=== PATIENT | male | born 1960 | race Caucasian/White ===

== ENCOUNTER → 2017-05-07 | Outpatient (CLI) | payer OTHER ==
--- NOTE | 2017-05-08 23:49 | MR ---
MRI CERVICAL SPINE: CLINICAL HISTORY: Cervical disc disorder C5-C6 level with radiculopathy per order. Neck and shoulder pain for 2 months causing pain or weakness into left arm per patient. TECHNIQUE: Multiplanar, multisequence imaging of the cervical spine is performed without IV contrast. COMPARISON: None. FINDINGS: Coronal images show slight levoconvex scoliotic curvature centered at the cervicothoracic j unction. Sagittal images of the cervical spine show the craniocervical junction to appear within norm al limits. The cervical and upper thoracic spinal cord is normal in course, caliber, and signal. Ve rtebral alignment is straightened. The vertebral body height are normal. There is mild disc space n arrowing C5-C6 level with small posterior disc herniation seen at this level on sagittal images. Ther e is hemangioma involving C5 vertebra. No significant spurring is seen. Axial images show the C2-C3 level to appear within normal limits. Axial images at C3-C4 level show focal central disc protrusion effacing anterior thecal sac on axial image 41, there is asymmetric mild left-sided neural foraminal narrowing presumed due to marginal spu rring. Right-sided neural foramen is patent. Axial images at C4-C5 level shows central disc protrusion mildly facing anterior thecal sac on axial image 32, bilateral neuroforamina are patent. Axial images at C5-C6 level shows broad-based posterior disc protrusion effacing anterior thecal sac and causing mild to moderate right and mild left-sided neural foraminal narrowing. Axial images at C6-C7 level show left paracentral disc protrusion effacing anterolateral thecal sac o n axial image 14, bilateral neuroforamina are patent. Axial images at C7-T1 level are felt within normal limits. IMPRESSION: Loss of normal curvature with multilevel degenerative changes seen most prominent at C5-C 6 level as detailed above.
== END | disposition home or self-care (01) ==
LOC: RADMRIMAIN 15:00
PROVIDERS: ATTEND Family Medicine
DX: M47.22 Other spondylosis with radiculopathy, cervical region (principal); M40.202 Unspecified kyphosis, cervical region
CPT/HCPCS: 72141

== ENCOUNTER 2019-06-22 09:57 | Day surgery (SDC) | payer OTHER ==
[2019-06-20 16:10] VITALS: BMI 29.0
[~2019-06-22 09:57] MED LIST: DEXAMETHASONE SOD PHOSPHATE 10 MG/ML 1 ML VIAL IV ONE; DEXAMETHASONE SOD PHOSPHATE 4 MG/ML 1 ML VIAL IV ONE; FAMOTIDINE 20 MG/2 ML VIAL IV ONE; HYDROmorphone 0.5 MG/0.5 ML SYRINGE IVP PRN; LACTATED RINGERS 1,000 ML IV SCH; LIDOCAINE 1% (10MG/ML) FOR IV START INTRADERMA PRN; ONDANSETRON 4 MG/2 ML VIAL IVP ONE; OXYMETAZOLINE 0.05% NASL SPRAY 1 SPRAY BOTTLE NASAL ONE
[2019-06-22 10:50] LABS: Glucose,Whole Blood 90 mg/dL (75-99)
[2019-06-22] MEDS ORDERED: PHENYLEPHRINE-0.9% NACL SYG 1 MG/10 ML SYRINGE ONE (11:30)
[2019-06-22] MEDS ORDERED: MIDAZOLAM 2 MG/2 ML VIAL ONE (11:30)
[2019-06-22] MEDS ORDERED: LIDOCAINE 1% INJ 10MG/ML (20 ML MDV) ONE (11:30)
[2019-06-22] MEDS ORDERED: PROPOFOL 10 MG/ML 20 ML VIAL IV ONE (11:30)
[2019-06-22] MEDS ORDERED: DEXAMETHASONE SOD PHOS (MDV) 100 MG/10 ML VIAL ONE (11:30)
[2019-06-22] MEDS ORDERED: GLYCOPYRROLATE 0.2 MG/ML 2 ML VIAL ONE (11:30)
[2019-06-22] MEDS ORDERED: NEOSTIGMINE 1 MG/ML 10 ML VIAL ONE (11:30)
[2019-06-22] MEDS ORDERED: fentaNYL (PF) 50 MCG/ML 2 ML AMP ONE (11:30)
[2019-06-22] MEDS ORDERED: ROCURONIUM BROMIDE 10 MG/ML 5 ML VIAL IV ONE (11:30)
[2019-06-22] MEDS ORDERED: LIDOCAINE 1%-EPI 1:100,000 20 ML VIAL SQ ONE (11:59)
[2019-06-22] MEDS ORDERED: FLUORESCEIN STRIPS 1 MG STRIP MISCELLANE ONE (12:00)
[2019-06-22] MEDS ORDERED: EPINEPHrine 1 MG/ML (MDV) 30 ML VIAL IRRIGATION ONE (12:00)
[2019-06-22 13:03] VITALS: TEMP 97.4
--- NOTE | 2019-06-22 13:19 | P.OP ---
Date of Procedure: 06/22/19 Preoperative Diagnosis: Chronic pansinusitis with polyposis Postoperative Diagnosis: same Procedure(s) Performed: Bilateral functional endoscopic sinus surgery with polypectomy Anesthesia: JUAN Surgeon: Leroy Ha Estimated Blood Loss (ml): 10 Pathology: other (Sinonasal) Condition: stable Disposition: PACU Indications for Procedure: This is a white male who presented to the office with chronic sinus symptoms including nasal obstruction, total anosmia, facial pain and pressure etc. He's been treated with maximal medical therapy including antibiotics, corticosteroid nasal sprays and steroids with no improvement. CAT scan shows chronic pansinusitis with sinonasal polyposis. Surgery was recommended and a consent was obtained. All risks, benefits, and alternative therapies were discussed. Consent was obtained and all questions were answered. Operative Findings: Patient had sinonasal polyposis intranasally and throughout all sinuses with a very thick viscous material present. Description of Procedure: This patient was taken to the operative room and placed in the supine position. A general inhalation anesthetic was administered to the patient by the department of anesthesia with a functioning IV line in place. The patient was monitored throughout the entire case by the department of anesthesia. The eyes were taped shut for protection. The patient was placed in a slight reverse Trendelenburg position. The patient had previously utilize Afrin nasal spray preoperatively. The nose was evaluated and the septum lateral nasal wall and inferior turbinates were injected with lidocaine 1% with epinephrine 1 100,000 bilaterally. Approximately 10 minutes were allowed wait for full vasoconstrictive effects to take place. We then entered the nose with a 0 and 30 Goff elmer endoscope. Previous to this we did inject the lateral nasal wall and middle turbinate and uncinate process with lidocaine 1% with epinephrine 1 100,000. Approximately 10 minutes were allowed wait for full vasoconstrictive effects to take place. Intranasal polyps were noted. They were noted bilaterally. The intranasal polyps were removed with use of a microdebrider. With use of a microdebrider and a pediatr ic backbiter, we took down the uncinate process bilaterally. We then opened the maxillary sinuses bilaterally. We utilized a microdebrider for this and entered the maxillary sinuses and removed diseased tissue and polypoid tissue. This was done bilaterally. After the maxillary sinuses were opened and the diseased tissue and polyps were removed we entered the ethmoid bulla and with use of a microdebrider and up-biting Perico, we remove the anterior septations and remove diseased tissue from the anterior ethmoids with direct visualization. We then followed the fovea frontalis through the basal lamella and into the posterior ethmoid air cells and did a total ethmoidectomy with removal of polypoid material. Once the ethmoids cells were all taken down we then entered the sphenoid sinus medially and inferiorly underneath the inferior attachment of the superior turbinate. The sphenoid sinus was opened entered and diseased tissue and polyps were removed bilaterally. This was done with a microdebrider and Emily. We then entered the frontal sinuses with a giraffe and up-biting Emily entered on the agar nasi cells. We open the frontal sinuses and removed sinus tissue and polypoid tissue that was diseased. We explored the frontal sinuses bilaterally. To summarize all sinuses were open all sinuses were explored and we remove diseased tissue and polyps from the sphenoid maxillary and frontal sinuses. Polyps were removed from the nose. Ethmoid sinuses were opened totally. Nasal pore was inserted and minimal bleeding was encountered. We reinspected the skull base there is no signs of any orbital penetration or signs of any intracranial penetration. The sugical site was reinspected after the xerogel was placed and no bleeding was seen. We also placed a bilateral propel stent. He'll be starting irrigations this evening again the skull base was reinspected there is no signs of any penetration or perforation or other issues. Surgical site looked good all polyps were removed.
[2019-06-22 13:50] VITALS: PULSE 68; RESP 18
[2019-06-22 14:03] VITALS: BP 134/87
== END 2019-06-22 14:30 | disposition home or self-care (01) ==
LOC: OR 09:57
PROVIDERS: ATTEND Otolaryngology
DX: J32.4 Chronic pansinusitis (principal); J33.9 Nasal polyp, unspecified; I10 Essential (primary) hypertension; J45.909 Unspecified asthma, uncomplicated; Z83.3 Family history of diabetes mellitus; Z82.49 Family history of ischemic heart disease and other diseases of the circulatory system; Z79.51 Long term (current) use of inhaled steroids; Z79.899 Other long term (current) drug therapy; Z79.52 Long term (current) use of systemic steroids; J30.1 Allergic rhinitis due to pollen; J30.89 Other allergic rhinitis
CPT/HCPCS: 31267; 31259; 31253; 88305; C2625; C1726; J0171; J2250; J1100 ×2; J2710; J2405; J0690; J2001; J3010; J2370; J2704

== ENCOUNTER → 2020-06-13 | Outpatient (CLI) | payer OTHER ==
--- NOTE | 2020-06-13 14:13 | CONS ---
CONSULTATION DATE OF SERVICE: 06/13/2020 A 59-year-old gentleman has been evaluated [facility] for possible obstructive sleep apnea-hypopnea syndrome. HISTORY OF PRESENT ILLNESS/SLEEP-WAKE EVALUATION: Patient usual sleep schedule on weekdays from 9 to 11 p.m. until 4:30 a.m. and on weekends from 9 to 11 p.m. until 6 a.m. Usually no problems with falling asleep. No TV in bedroom. Patient sleeps on the side position, sometimes moves from side to side. He wakes up from sleep 2 times with nocturia, has a lot of leg movements during the night according to his . Patient snores loudly and feels significantly sleepy during the day. Badger Sleepiness Scale is 12, but usually she does not take any naps. No history of hypnagogic hallucinations, sleep paralysis or cataplexy. PAST MEDICAL HISTORY: Positive for nasal polyps, hypertension, asthma. PAST SURGICAL HISTORY: Endoscopic nasal surgery to remove the polyps. SOCIAL HISTORY: Negative for smoking or using alcohol. FAMILY HISTORY: Positive for heart problems. MEDICATIONS: Breo, montelukast 10 mg once a day, losartan 50 mg once a day, hydrochlorothiazide 25 mg once a day. REVIEW OF SYSTEMS: Snoring, awakenings from sleep, feeling tiredness and sleepiness during the day. PHYSICAL EXAMINATION: GENERAL: gentleman without distress. VITAL SIGNS: BP 148/84, HR 78, RR 12, height 5 feet 6 inches, weight 221, temperature 97.9 oxygen saturation at room air 97%. HEENT: PERRLA, EOMI. Oropharynx low position of soft palate, Mallampati 3-4. NECK: Supple, no JVD. Thyroid is not palpable. LUNGS: Clear to percussion and to auscultation. Good air exchange. No wheezing or rhonchi. HEART: S1, S2 regular. No murmurs, gallops, or rubs. ABDOMEN: Slightly obese. EXTREMITIES: No clubbing or cyanosis. CEO AND FOUNDER: Awake, alert, and oriented X3. Cranial nerves 2 to 7 intact. There is no fasciculation or atrophy. noted. No focal deficits observed. IMPRESSION: 1. Loud snoring, awakenings from sleep with nocturia, low position of soft palate. Neck 16-1/2 inches in circumference. Sleepiness. Badger Sleepiness Scale 12. Obstructive sleep apnea-hypopnea syndrome. 2. Asthma. 3. Hypertension. 4. Obesity, body mass index 35.6. 5. Significant amount of kicking during the sleep, possibly periodic limb movements. 6. History of nasal polyps, status post surgical treatment. PLAN: 1. Polysomnography for evaluation of patient's breathing during sleep. 2. CPAP/BiPAP titration if sleep study confirms obstructive sleep apnea-hypopnea syndrome. 3. Preferable position during sleep on the side. 4. No driving if patient feels any sleepiness. 5. I will see patient for follow up visit to explain results of testing and following plan. Thank you very much for referring this patient for consultation. Sincerely, Vinayak Lozano MD, PhD, FAASM Diplomat of [employer] Classification Control Clerk of [facility] [place] [email or web address] / KARMA: [id number] /
== END | disposition home or self-care (01) ==
LOC: SLEEP 13:22
PROVIDERS: ATTEND Internal Medicine
DX: G47.33 Obstructive sleep apnea (adult) (pediatric) (principal); J45.909 Unspecified asthma, uncomplicated; I10 Essential (primary) hypertension; E66.9 Obesity, unspecified; Z79.51 Long term (current) use of inhaled steroids; Z79.899 Other long term (current) drug therapy; Z68.35 Body mass index [BMI] 35.0-35.9, adult; Z98.890 Other specified postprocedural states; Z86.69 Personal history of other diseases of the nervous system and sense organs
CPT/HCPCS: 99211

== ENCOUNTER → 2023-01-19 | Outpatient (CLI) | payer OTHER ==
--- NOTE | 2023-01-20 08:51 | CT ---
EXAMINATION TYPE: CT sinus wo con DATE OF EXAM: 01/19/2023 COMPARISON: 04/27/2013 HISTORY: POLYP IN NASAL CAVITY. LACK OF SMELL AND TASTE CT DLP: 635.10 mGycm. Automated Exposure Control for Dose Reduction was Utilized. TECHNIQUE: CT scan of the sinuses is performed without contrast, axial images are obtained, coronal r eformatted images are also reviewed. FINDINGS: Previous sinus surgery noted with the ostium of the maxillary sinuses. There is mild bilate ral maxillary chronic-appearing sinusitis and moderate to severe ethmoidal changes. There is moderate frontal mucosal thickening. No air-fluid levels. Moderate to severe changes involvi ng sphenoid sinus. Slight nasal septal deviation noted. Visualized portion of mastoid air cells show no abnormal opacification. The globes are intact bilate rally. There is bilateral instrumentation involving the external auditory canal possibly related to hearing aids. IMPRESSION: 1. Moderate severe ethmoidal, frontal and sphenoidal chronic sinusitis. 2. Mild maxillary sinusitis.
== END | disposition home or self-care (01) ==
LOC: RADCTMAIN 18:15
PROVIDERS: ATTEND Otolaryngology
DX: J33.0 Polyp of nasal cavity (principal); J32.0 Chronic maxillary sinusitis; J32.2 Chronic ethmoidal sinusitis; J32.3 Chronic sphenoidal sinusitis
CPT/HCPCS: 70486

== ENCOUNTER → 2023-07-13 | Outpatient (CLI) | payer BC ==
[2023-07-13 15:29] LABS: Basophils # (A) 0.1 k/uL (0-0.2); Basophils % (A) 1 %; Eosinophils # (A) 0.8 k/uL (0-0.7); Eosinophils % (A) 9 %; HCT 45.5 % (39.0-53.0); HGB 15.3 gm/dL (13.0-17.5); Lymphocytes # (A) 2.4 k/uL (1.0-4.8); Lymphocytes % (A) 27 %; MCH 31.8 pg (25.0-35.0); MCHC 33.7 g/dL (31.0-37.0); MCV 94.5 fL (80.0-100.0); Mean Platelet Volume 8.2; Monocytes # (A) 0.6 k/uL (0-1.0); Monocytes % (A) 7 %; Neutrophils # (A) 4.6 k/uL (1.3-7.7); Neutrophils % (A) 53 %; Platelet Count 206 k/uL (150-450); RBC 4.82 m/uL (4.30-5.90); RDW 12.6 % (11.5-15.5); WBC 8.7 k/uL (3.8-10.6)
[2023-07-13 16:08] LABS: Total Eosinophil Count 783 #EOS/uL (150-300)
[2023-07-15 17:16] LABS: Alternaria alternata IgE <0.10 kU/L; Aspergillus fumagatus IgE 0.76 kU/L; Birch IgE 1.19 kU/L; Cat Epith & Dander IgE <0.10 kU/L; Cladosporian herbarum IgE <0.10 kU/L; Dermato. farinae IgE 0.13 kU/L; Dog Dander IgE <0.10 kU/L; Elm IgE 0.12 kU/L; Maple (Box Elder) IgE 0.76 kU/L; Oak IgE 1.78 kU/L; Ragweed,Common IgE 6.24 kU/L; Red Top (Bentgrass) IgE 0.66 kU/L
[2023-07-15 18:02] LABS: Cockroach IgE <0.10 kU/L
== END | disposition home or self-care (01) ==
LOC: LABWHC1 14:50
PROVIDERS: ATTEND Internal Medicine
DX: J45.30 Mild persistent asthma, uncomplicated (principal)
CPT/HCPCS: 36415; 82785; 85008; 85025; 86003